=== PATIENT | female | born 1980 | race Caucasian/White ===

== ENCOUNTER 2018-11-17 16:03 | Emergency (ER) | payer BC, OTHER ==
[~2018-11-17] VITALS: Ht 165.1 cm; Wt 60.3 kg
[~2018-11-17 16:03] MED LIST: CELEXA20 MG PO; LOVENOX SQ; SEROQUEL50 MG PO; XARELTO20 MG PO
--- OUTSIDE RECORDS SUMMARY | 2018-11-17 16:06 | XMS REPORT | Clinical Summary ---
Author Author [facility] Address Unknown Phone Unavailable Care Team Providers Care Cheese Wrapper Name Role Phone Unknown, Phys PCP Unavailable Allergies Comments Active Allergy Reactions Severity Noted Date Morphine 09/28/2016 Medications End Date Status Medication Sig Dispensed Refills Start Date Active XARELTO 20 mg tablet TK 1 T PO AT 0 1800 7 Active diazePAM (VALIUM) 5 MG TAKE 1 T PO 2 tablet QID PRN 7 Active acetaminophen-codeine TK 1 TABLET 0 (TYLENOL WITH CODEINE #3) PO EVERY 6 7 300-30 mg per tablet HOURS Active zolpidem (AMBIEN) 10 mg TAKE 1 T PO 1 tablet QHS 7 Active QUEtiapine (SEROquel) 25 TK 3 TS PO 2 MG tablet QHS 7 Active pravastatin (PRAVACHOL) TK 1 T PO QD 0 20 MG tablet 7 Active LORAZepam (ATIVAN) 1 MG TAKE 1 T PO 1 tablet QID 7 Active azithromycin (ZITHROMAX) TK 2 TS PO 0 250 MG tablet FOR 1 DAY 7 THEN TK 1 T PO D FOR 4 DAYS Active Problems No known active problems Family History Medical History Relation Name Comments Hypertension Father Mental illness Mother Relation Name Status Comments Father Mother Social History Date Tobacco Use Types Packs/Day Years Used Current Every Day Smoker Alcohol Use Drinks/Week oz/Week Comments No Sex Assigned at Date Recorded Not on file Industry Job Start Date Occupation Not on file Not on file Not on file Travel End Travel History Travel Start No recent travel history available. Last Filed Vital Signs Not on file Plan of Treatment Health Maintenance Due Date Last Done Comments INFLUENZA VACCINE 01/26/2019 Results Not on fileafter 11/16/2017 Insurance Type Payer Benefit Subscriber ID Effective Phone Address Plan / Dates Group PPO BCBS BCBS xxxxxxxxx 2016-P CHOICE resent PPO/STEPHANIE GARCIA PPO Advance Directives Patient has advance care planning documents on file. For more information, dawn farmer contact: Bala Krause [address] [place] [address]
--- OUTSIDE RECORDS SUMMARY | 2018-11-17 16:06 | XMS REPORT ---
[facility] Address Unknown Phone Unavailable Care Team Providers Care Flex O Writer Operator Name Role Phone JUANAlejandra WATTS Unavailable Unavailable Payers Payer Name Policy Type Policy Number Effective Date Expiration Date Problems This patient has no known problems. Allergies, Adverse Reactions, Alerts Allergy Name Allergy Type Status Severity Reaction(s) Onset Date Inactive Date Treating Clinician Comments morphine DA Active U 2018-09-19 00:00:00 No Known Allergies DA Active U 2018-08-30 00:00:00 morphine DA Active U 2017-02-18 00:00:00 Medications This patient has no known medications. Results Test Description Test Time Test Comments Text Results Atomic Results Result Comments - XR FOOT 3 + V RT 2018-11-09 19:27:00 FAX: Gerard Maria [phone] [place]: St: REG FAX: Eugene Lombardi DO [phone] Name: ERIN ALLEN : 1980 Age/S: 37/F [address] [place] [address] Unit #: [id number] Loc: [place] [address] Phys: Eugene Espinoza DO Acct: [id number] Dis Date: Status: REG ER PHONE #: [phone] Exam Date: 11/09/2018 1925 FAX #: [phone] Reason: pain s/p foot trauma to 1st 2nd toe EXAMS: CPT CODE: [id number] XR FOOT 3 + [place] [address] Three-view right foot INDICATION: Acute right foot pain status post injury to first and second toes. FINDINGS: No prior for comparison. Joint spaces are maintained. No acute fractures or dislocations are identified. No radiopaque foreign body. IMPRESSION: Negative. SL: SG-H at 192 Reported and signed by: Miguel Ángel Montana M.D. CC: Gerard Jones; Eugene Espinoza DO Technologist: RT Mirna(R) Trnscrd Date/Time/By: 11/09/2018 (1926) : By: [email or web address] Orig Print D/T: S: 11/09/2018 (1930) PAGE 1 Signed Report - CT ANGIO CHEST 2018-09-19 16:36:00 Name: ERIN ALLEN : 1980 Age/S: 37 / F [address] [place] [address] Unit #: [id number] Loc: [place] [address] Phys: Filomena Jyoner NP Acct: [id number] Dis Date: Status: REG ER PHONE #: [phone] Exam Date: 09/19/2018 1607 FAX #: [phone] Reason: SOB EXAMS: CPT CODE: [id number] CT ANGIO CHEST [address] PROCEDURE: CTA CHEST INDICATION: Shortness of breath COMPARISON: None. TECHNIQUE: CTA of the pulmonary arteries was performed with 100 ml Isovue 300 intravenous contrast. Multiplanar and 3-D MIP angiographic reconstructions are reviewed. CT imaging performed at this location utilizes radiation dose optimization techniques which include one or more of the following: -Automated exposure control -Adjustment of the mA and/or kV according to patient size -Use of iterative reconstruction technique CT Radiation Dose DLP 204 mGy-cm FINDINGS: PULMONARY ARTERIES: Normal enhancement without intraluminal filling defect. MEDIASTINUM: The mediastinal contents are unremarkable. No adenopathy. HEART: The cardiac chambers are unremarkable. No pericardial effusion. VASCULAR STRUCTURES: The thoracic aorta and great vessels are unremarkable. The superior vena cava is unremarkable. LUNGS: The lungs are clear. No pleural abnormality. UPPER ABDOMEN: Survey of viscera may be limited by early phase of contrast enhancement. No acute abnormality demonstrated. Previous cholecystectomy. MUSCULOSKELETAL: The skeleton is intact. IMPRESSION: 1. No acute intrathoracic abnormality demonstrated. Specifically, no CT evidence for pulmonary embolism. 2. Previo us cholecystectomy. SL: [id number] PAGE 1 Signed Report (CONTINUED) Name: ERIN ALLEN [facility] : 1980 Age/S: 37 / F [address] [place] [address] Unit #: [id number] Loc: [place] [address] Phys: Filomena Joyner NP Acct: [id number] Dis Date: Status: REG ER PHONE #: [phone] Exam Date: 09/19/2018 1607 FAX #: [phone] Reason: SOB EXAMS: CPT CODE: [id number] CT ANGIO CHEST [address] <Continued> at 1636 Reported and signed by: Hector tSein M.D. CC: Gerard Jones; Filomena Joyner NP Technologist:RT Fabiola(R) CTDI: DLP: Trnscb Date/Time: 09/19/2018 (163) [email or web address] Orig Print D/T: S: 09/19/2018 (163) CTDI: DLP: PAGE 2 Signed Report B-TYPE NATRIURETIC PEPTIDE 2018-09-19 16:31:00 B-TYPE NATRIURETIC PEPTIDE (test code=BNP) < 2.0 PG/ML 0-100 PROTHROMBIN [id number] 15:54:00* Test Item Value Reference Range Comments PROTHROMBIN TIME PATIENT (test code=PTP) 14.6 SECONDS 9.3-12.9 INTERNATIONAL NORMAL RATIO (test code=INR) 1.3 0.8-1.2 TARGET INR BY INDICATION Indication INR1. Prophylaxis of venous thrombosis 2.0 - 3.0 (orthopedic surgery), Prophylaxis of venous thrombosis (other than high-risk surgery), Treatment of Deep Vein Thrombosis/Pulmonary Embolism, Prevention of systemic embolism - Tissue heart valves, Acute Myocardial Infarction (to prevent systemic embolism), Valvular heart disease, Atrial Fibrillation, Bileaflet mechanical valve in aortic position.2. Mechanical prosthetic valves (high risk), 2.5 - 3.5 Presence of Lupus Anticoagulant or Antiphospholipid Antibodies, Prevention of systemic embolism - Acute Myocardial Infarction (to prevent recurrent infarct). CBC W/AUTO [id number] 15:28:00* Test Item Value Reference Range Comments WHITE BLOOD CELL (test code=WBC) 10.72 x10 3/uL 4.5-11.0 RED BLOOD CELL (test code=RBC) 5.06 x10 6/uL 3.54-5.02 HEMOGLOBIN (test code=HGB) 15.7 g/dL 11.0-15.0 HEMATOCRIT (test code=HCT) 47.8 % 33.0-45.0 MEAN CELL VOLUME (test code=MCV) 94.5 fL 81.0-99.0 MEAN CELL HGB (test code=MCH) 31.0 pg 27.0-33.0 MEAN CELL HGB CONCETRATION (test code=MCHC) 32.8 g/dL 33.0-37.0 RED CELL DISTRIBUTION WIDTH CV (test code=RDW) 12.7 % 11.5-14.5 RED CELL DISTRIBUTION WIDTH SD (test code=RDW-SD) 44.0 fL 37.0-54.0 PLATELET COUNT (test code=PLT) 249 x10 3/uL 150-400 MEAN PLATELET VOLUME (test code=MPV) 11.9 fL 7.0-9.0 NEUTROPHIL % (test code=NT%) 62.9 % 56.0-77.0 IMMATURE GRANULOCYTE % (test code=IG%) 0.4 % 0.0-2.0 LYMPHOCYTE % (test code=LY%) 19.4 % 14.0-32.0 MONOCYTE % (test code=MO%) 8.8 % 4.8-9.0 EOSINOPHIL % (test code=EO%) 7.6 % 0.3-3.7 BASOPHIL % (test code=BA%) 0.9 % 0.0-2.0 NUCLEATED RBC % (test code=NRBC%) 0.0 % 0-0 NEUTROPHIL # (test code=NT#) 6.74 x10 3/uL 2.0-7.6 IMMATURE GRANULOCYTE # (test code=IG#) 0.04 x10 3/uL 0.00-0.03 LYMPHOCYTE # (test code=LY#) 2.08 x10 3/uL 1.0-3.8 MONOCYTE # (test code=MO#) 0.94 x10 3/uL 0.1-0.8 EOSINOPHIL # (test code=EO#) 0.82 x10 3/uL 0.0-0.2 BASOPHIL # (test code=BA#) 0.10 x10 3/uL 0.0-0.2 NUCLEATED RBC # (test code=NRBC#) 0.00 x10 3/uL 0.0-0.1 MANUAL DIFF REQUIRED (test code=MDIFF) NO TROPONIN-I [id number] 15:10:00* Test Item Value Reference Range Comments TROPONIN-I RAPID (test code=TROPIRAP) 0.00 ng/mL 0.00-0.08 Performed by certified flame cutting machine operator at [facility] Global Task Force with joint leadership from the EuropeanSociety of Cardiology (ESC), the [place] [employer] Foundation (ACCF), the [place] [employer] Association(AHA) and the World Heart Federation (WHF) refined past criteria of myocardial infarction (SD) with a universal definition of myocardial infarction that supports the use of cTnI as a preferred biomarker for myocardial injury. The universal definition of SD, according to this taskforce, is defined as a typical rise and gradual fall ofcardiac biomarkers (preferably troponin) with at least onevalue above the 99th percentile of the upper reference limit (URL) together with evidence of myocardial ischemia with at least one of the following:* ischemic symptoms,* pathological Q waves on electrocardiogram (ECG),* ischemic ECG changes,* or imaging evidence of new loss of viable myocardium or new regional wall motion abnormality. An elevated troponin value alone is not sufficient todiagnose a myocardial infarction. Rather, the patient sclinical presentation (history, physical exam) and ECGshould be used in conjunction with troponin in thediagnostic evaluation of suspected myocardial infarction. Aserial sampling protocol is recommended to facilitate the identification of temporal changes in troponin levels characteristic of SD. CHEMISTRY 8 [id number] 15:02:00* Test Item Value Reference Range Comments ISTAT-SODIUM (test code=NAP) MMOL/L 134-147 ISTAT-POTASSIUM (test code=KP) MMOL/L 3.4-5.0 ISTAT-CHLORIDE (test code=CLP) MMOL/L 100-108 ISTAT CARBON DIOXIDE (test code=ISTAT-CO2) mmol/L 21-33 ISTAT CALCIUM IONIZED (test code=ISTAT-LIZET) MG/DL 1.12-1.32 ISTAT-GLUCOSE (test code=GLUP) MG/DL 70-110 ISTAT-BUN (test code=BUNP) MG/DL 7-18 BEDSIDE CREATININE (test code=CREATBED) MG/DL 0.6-1.3 GLOMERULAR FILTRATION RATE POC (test code=GFRBED) 75 ML/MIN CHEMISTRY 8 [id number] 15:02:00* Test Item Value Reference Range Comments ISTAT-SODIUM (test code=NAP) 141 MMOL/L 134-147 ISTAT-POTASSIUM (test code=KP) 3.7 MMOL/L 3.4-5.0 ISTAT-CHLORIDE (test code=CLP) 105 MMOL/L 100-108 Performed by certified flame cutting machine operator at [facility] ISTAT CARBON DIOXIDE (test code=ISTAT-CO2) 28.0 mmol/L 21-33 ISTAT CALCIUM IONIZED (test code=ISTAT-LIZET) 1.18 MG/DL 1.12-1.32 ISTAT-GLUCOSE (test code=GLUP) 91 MG/DL 70-110 ISTAT-BUN (test code=BUNP) 8 MG/DL 7-18 BEDSIDE CREATININE (test code=CREATBED) 0.9 MG/DL 0.6-1.3 GLOMERULAR FILTRATION RATE POC (test code=GFRBED) 75 ML/MIN - [facility] VEIN UNI/[id number] 14:14:00 Name: ERIN ALLEN [facility] : 1980 Age/S: 37 / F [address] [place] [address] Unit #: [id number] Loc: [place] [address] Phys: Filomena Joyner NP Acct: [id number] Dis Date: Status: REG ER PHONE #: [phone] Exam Date: 09/19/20181411 FAX #: [phone] Reason: R calf pain, HX clots EXAMS: CPT CODE: [id number] DUP VEIN UNI/LTD 10774 Patient: ERIN ALLEN. : 1980; Age: 37 years; Gender: Female. MR: [id number]. Ordering physician: Filomena Joyner NP. PROCEDURE: UNILATERAL LOWER EXTREMITY VENOUS ULTRASOUND. INDICATION: Right calf pain, shortness of breath, previous DVT. COMPARISON: None. TECHNIQUE: Sonographic evaluation of the right lower extremity veins was performed using high resolution B-mode, pulse and color Doppler imaging. FINDINGS: The common femoral, femoral, popliteal and visualized calf veins are patent. Normal venous waveforms. The saphenofemoral junction is unremarkable. IMPRESSION: No deep venous thrombosis. SL: [id number] at 1414 Reported and signed by: Erik Mendoza M.D. CC: Gerard Jones; Filomena Joyner NP Technologist: Filomena Morin RDMS(AB)(OB) Trnscb Date/Time: 09/19/2018 (1414) [email or web address] Orig Print D/T: S: 09/19/2018 (1417) Probe: PAGE 1 Signed Report - XR CHEST 1 [id number] 13:17:00 FAX: Gerard Maria [phone] [place]: St: REG FAX: Filomena Joyner NP [phone] Name: ERIN ALLEN [facility] : 1980 Age/S: 37/F [address] Unit #: [id number] Loc: [place] [address] Phys: Filomena Joyner TABLET TESTER Acct: [id number] Dis Date: Status: REG ER PHONE #: [phone] Exam Date: 09/19/2018 1308 FAX #: [phone] Reason: SOB EXAMS: CPT CODE: [id number] XR CHEST 1 V 61281 Patient: ERIN ALLEN. : 1980; Age: 37 years; Gender: Female. MR: [id number]. Ordering physician: Filomena Joyner NP. PORTABLE CHEST AP: HISTORY: Shortness of breath. COMPARISON: CT chest 08/04/2016. FINDINGS: Portable frontal view of the chest was obtained. Minimal left lower lung field pleural parenchymal scarring noted. No infiltrate, pleural effusion or pneumothorax. The cardiomediastinal silhouette and pulmonary vasculature are unremarkable. The partially visualized upper abdomen is unremarkable. IMPRESSION: No acute disease in the chest. SL: [id number] at 1317 Reported and signed by: Erik Mendoza M.D. CC: Gerard Jones; Filomena Joyner NP Technologist: AYAZ Almaguer RT(R) Trnscrd Date/Time/By: 09/19/2018 (0748) : By: [email or web address] Orig Print D/T: S: (1656) PAGE 1 Signed Repo rt URINALYSIS [id number] 01:38:00* Test Item Value Reference Range Comments UA COLOR (test code=COLU) COLORLESS YELLOW UA APPEARANCE (test code=APPU) CLEAR CLEAR UA GLUCOSE DIPSTICK (test code=DGLUU) NEGATIVE mg/dL NEGATIVE UA BILIRUBIN DIPSTICK (test code=BILU) NEGATIVE mg/dL NEGATIVE UA KETONE DIPSTICK (test code=KETU) Negative mg/dL NEGATIVE UA SPECIFIC GRAVITY (test code=SGU) 1.020 1.001-1.035 UA BLOOD DIPSTICK (test code=DAWIT) Negative NEGATIVE UA PH DIPSTICK (test code=MELISSA) 7.0 5.0-8.0 UA PROTEIN DIPSTICK (test code=PROU) Negative mg/dL NEGATIVE UA UROBILINIOGEN DIPSTICK (test code=URO) NEGATIVE mg/dL NEGATIVE UA NITRITE DIPSTICK (test code=THERON) NEGATIVE NEGATIVE UA LEUKOCYTE ESTERASE W REFLEX (test code=LEUUR) NEGATIVE NEGATIVE UA WBC (test code=WBCU) 0-5 #/HPF 0-5 UA EPITHELIAL CELLS (test code=EPIU) FEW per HPF FEW UA BACTERIA (test code=BACU) FEW #/HPF NONE UA MUCUS (test code=MUCU) FEW #/LPF FEW Urine Source? Clean Catch- CT ABD PELVIS W/[id number] 01:06:00 Name: ERIN ALLEN [facility] : 1980 Age/S: 37 / F [address] [facility] [facility]: [id number] Loc: [place] [address] Phys: Saira Trujillo TABLET TESTER Acct: [id number] Di s Date: Status: REG ER PHONE #: [phone] Exam Date: 08/30/2018 0053 FAX #: [phone] Reason: RLQ pain EXAMS: CPT CODE: [id number] CT ABD PELVIS W/CONT 56829 EXAM: - CT ABD PELVIS W/ CONT HISTORY: Abdominal pain. TECHNIQUE: Axial tomog glenny through the abdomen and pelvis were obtained after intravenous contra st. Coronal and sagittal reformatted images are provided. This exa m was performed according to our departmental dose-optimization program, w hich includes automated exposure control, adjustment of the mA and/or kV a ccording to patient size and/or use of iterative reconstruction technique. COMPARISON: None available time of interpretation. FINDINGS: The visualized lung bases are clear of consolidation. Th ere is trace atelectasis at left lung base laterally. No pleural ef fusion. Bilateral breast implants are present. The liver, spleen, pancreas, adrenal glands and kidneys demonstrate no significant abnormalit ies. The appendix has a normal appearance. The colon is deco mpressed with fatty changes in its wall. This may reflect chronic inflamma tion. There is no adenopathy or free fluid. Status post cholecyste ctomy and hysterectomy. There is no acute osseous abnormalit y. IMPRESSION: No significant abnorma lities demonstrated. Other findings as above. Elec tronically Signed by Rhett Orosco MD on 08/30/2018 at 0106 Reported and signed by: Rhett Orosco MD PAGE 1 Signed Report (CONTINUED) Name: ERIN ALLEN [facility] : 1980 Age/S: 37 / F [address] Unit #: [id number] Loc: [place] [address] Phys: Hilary Trujillo NP Acct: [id number] Dis Date: Status: R EG ER PHONE #: [phone] Exam Date: 10/2018 005 FAX #: [phone] Reason: RLQ pain EXAMS: CPT CODE: [id number] CT ABD PELVIS W/CONT 7 4177 <Continued> CC: Hilary Trujillo TABLET TESTER; Gerard Jones Technologist:THOMAS PÉREZ CTDI: DLP: Trnscb Date/Time: 08/30/2018 (105) [email or web address] Orig Print D/T: S: 08/30/2018 (108) CTDI: DLP: PAGE 2 Signed Report BASIC METABOLIC [id number] 00:43:00* Test Item Value Reference Range Comments SODIUM (test code=NA) 142 mmol/L 136-145 POTASSIUM (test code=K) 3.6 mmol/L 3.5-5.1 CHLORIDE (test code=CL) 110.0 mmol/L 98-107 CARBON DIOXIDE (test code=CO2) 25.0 mmol/L 21-32 ANION GAP (test code=GAP) 10.6 10-20 GLUCOSE (test code=GLU) 116 mg/dL 74-106 BLOOD UREA NITROGEN (test code=BUN) 12 mg/dL 7-18 GLOMERULAR FILTRATION RATE (test code=GFR) > 60 mL/min >=60 Estimated GFR by using Modified MDRD formula.Chronic kidney disease is defined as either kidney damageor GFR <60 mL/min/1.73 m2 for >3 months. CREATININE (test code=CREAT) 0.90 mg/dL 0.55-1.02 Note change in reference range due to change in reagent. BUN/CREATININE RATIO (test code=BUN/CREA) 13.1 10-20 CALCIUM (test code=CA) 8.9 mg/dL 8.5-10.1 HEPATIC FUNCTION [id number] 00:43:00* Test Item Value Reference Range Comments TOTAL PROTEIN (test code=PROT) 7.6 gram/dL 6.4-8.2 ALBUMIN (test code=ALB) 3.5 g/dL 3.4-5.0 GLOBULIN (test code=GLOB) 4.1 gram/dL 2.7-4.2 ALBUMIN/GLOBULIN RATIO (test code=A/G) 0.9 0.75-1.50 BILIRUBIN TOTAL (test code=BILT) 0.40 mg/dL 0.0-1.0 BILIRUBIN DIRECT (test code=BILD) 0.08 mg/dL 0.0-0.20 SGOT/AST (test code=AST) 21 IUnit/L 15-37 SGPT/ALT (test code=ALT) 42 IUnit/L 12-78 ALKALINE PHOSPHATASE TOTAL (test code=ALKP) 106 IUnit/L 45-117 Note change in reference range due to change in reagent. [id number] 00:43:00* Test Item Value Reference Range Comments LIPASE (test code=LIP) 191 U/L 73.0-393.0 BASIC METABOLIC [id number] 00:27:00* Test Item Value Reference Range Comments SODIUM (test code=NA) 142 mmol/L 136-145 POTASSIUM (test code=K) 3.6 mmol/L 3.5-5.1 CHLORIDE (test code=CL) 110.0 mmol/L 98-107 CARBON DIOXIDE (test code=CO2) mmol/L 21-32 ANION GAP (test code=GAP) 10-20 GLUCOSE (test code=GLU) mg/dL 74-106 BLOOD UREA NITROGEN (test code=BUN) mg/dL 7-18 GLOMERULAR FILTRATION RATE (test code=GFR) mL/min >=60 CREATININE (test code=CREAT) mg/dL 0.55-1.02 BUN/CREATININE RATIO (test code=BUN/CREA) 10-20 CALCIUM (test code=CA) mg/dL 8.5-10.1 HEPATIC FUNCTION [id number] 00:27:00* Test Item Value Reference Range Comments TOTAL PROTEIN (test code=PROT) gram/dL 6.4-8.2 ALBUMIN (test code=ALB) g/dL 3.4-5.0 GLOBULIN (test code=GLOB) gram/dL 2.7-4.2 ALBUMIN/GLOBULIN RATIO (test code=A/G) 0.75-1.50 BILIRUBIN TOTAL (test code=BILT) mg/dL 0.0-1.0 BILIRUBIN DIRECT (test code=BILD) mg/dL 0.0-0.20 SGOT/AST (test code=AST) IUnit/L 15-37 SGPT/ALT (test code=ALT) IUnit/L 12-78 ALKALINE PHOSPHATASE TOTAL (test code=ALKP) IUnit/L 45-117 [id number] 00:27:00* Test Item Value Reference Range Comments LIPASE (test code=LIP) U/L 73.0-393.0 CBC W/O [id number] 00:15:00* Test Item Value Reference Range Comments WHITE BLOOD CELL (test code=WBC) 12.4 K/mm3 4.5-12.5 RED BLOOD CELL (test code=RBC) 4.47 mill/mm3 3.7-5.2 HEMOGLOBIN (test code=HGB) 14.0 gram/dL 11.5-15.5 HEMATOCRIT (test code=HCT) 42.4 % 36.0-46.0 MEAN CELL VOLUME (test code=MCV) 94.9 fL 80-98 MEAN CELL HGB (test code=MCH) 31.3 picogram 27.0-33.0 MEAN CELL HGB CONCETRATION (test code=MCHC) 33.0 gram/dL 33.0-36.0 RED CELL DISTRIBUTION WIDTH (test code=RDW) 13.5 % 11.6-16.2 PLATELET COUNT (test code=PLT) 268 K/mm3 150-450 MEAN PLATELET VOLUME (test code=MPV) 11.2 fL 6.7-11.0 FOOT LEFT COMPLETE [place] [id number] [place] [address] Patient Name: ERIN ALLEN MR #: [id number] : 1980 Age/Sex: 36/F Req #: [id number] Adm Physician: Ordered by: KAVYA GÓMEZ TABLET TESTER Report #: [id number] Location: ER Room/Bed: Procedure: [id number] DX/FOOT LEFT COMPLETE Exam Caleb e: Exam Time: REPORT STATUS: Signed PROCED URE: X-RAY LEFT FOOT, COMPLETE COMPARISON: None. INDICATIONS: LEFT FOOT PAIN FINDINGS: No acute, displaced fracture or dislocation. Appropriate alignment between the medial cuneiform and second metatarsal base in keeping with an intact Lisfranc ligament. Joint spaces are well-maintain ed. Soft tissues are unremarkable. CONCLUSION: No acute osseou s abnormality. Dictated by: Deborah Haney M.D. on 06/01/2017 at 12:30 E lectronically approved by: Deborah Haney M.D. on 06/01/2017 at 12:30 Dictated By: DEBORAH HANEY MD 1230 Transcribed By: TORREY on 06/01/17 1230 COPY TO: REGINALDO GÓMEZ TABLET TESTER ANKLE 3+ VIEWS LEFT [place] [address] Patient Name: ERIN ALLEN MR #: [id number] : 1980 Age/Sex: 36/F Req #: [id number] Adm Physician: Ordered by: KAVYA GÓMEZ TABLET TESTER Report #: [id number] Location: ER Room/Bed: Procedure: [id number] DX/ANKLE 3+ VIEWS LEFT Exam Da te: Exam Time: REPORT STATUS: Signed PROCE DURE: ANKLE 3+ VIEWS LEFT INDICATION: Ankle pain COMPARISON: 10/26. FINDINGS: No acute, displaced fracture or dislocation. Tibial pl afond and talar dome are intact. The ankle mortise is well-maintained. Cortic al irregularity along the calcaneus may reflect a remote injury. Soft tiss ues are unremarkable. CONCLUSION: No acute osseous abnormality. Dictated by: Deborah Haney M.D. on 06/01/2017 at 12:34 Valentino bonilla approved by: Deborah Haney M.D. on 06/01/2017 at 12:34 Dicta deep By: DEBORAH HANEY MD 1234 Transcribed By: TORREY on 06/01/17 1234 COPY TO: KAVYA GÓMEZ NP
[2018-11-17] MEDS ORDERED: CLINDAMYCIN PHOS 600 MG/ 4 ML VIAL IM ONE (16:30)
[2018-11-17] MEDS ORDERED: KETOROLAC TROMETHAMINE 60 MG/2 ML VIAL IM ONE (16:30)
[2018-11-17] MEDS ORDERED: TETANUS/DIPHTHERIA TOX ADULT 0.5 ML SYR IM ONE (16:45)
[2018-11-17] MEDS ORDERED: HYDROCODONE/APAP 10MG-325MG TAB PO ONE (16:45)
[2018-11-17 17:39] VITALS: BP 133/97
== END 2018-11-17 17:40 | disposition home or self-care (01) ==
LOC: ER 16:03
DX: S91.331A Puncture wound without foreign body, right foot, initial encounter (principal); W26.0XXA Contact with knife, initial encounter; Y99.0 Civilian activity done for income or pay; F41.9 Anxiety disorder, unspecified; Z86.718 Personal history of other venous thrombosis and embolism
CPT/HCPCS: 99282